=== PATIENT | female | born 1950 | race African-American/Black ===

== ENCOUNTER 2021-05-01 13:01 | Emergency (ER) | payer OTHER, BC ==
[~2021-05-01] VITALS: Ht 167.6 cm; Wt 102.1 kg
--- NOTE | ~2021-05-01 | EMS ---
[address] [address] EMS Patient Care Report Name: DELVIN DANIEL Room #: DEP SCOTT Rodríguez#: [id number] Admission: 05/01/21 Attend Phys: Discharge: 05/01/21 Date of : 50 Report #: [id number] THIS REPORT FOR: //name// Report Transmitted: 05/02/2021 13:30 EMS Care Summary [place], [place]/[facility] Incident [id number] @ 05/01/2021 12:19 Incident Location [facility] [place] H12 Patient DELVIN DANIEL Female, 70 Years 1950 Patient Address [address] [place], [place] [id number] Patient History Other,Asthma,Diabetes,Gastrointestinal Problems,Kidney/Renal Failure,Hyperlipidemia,Fibromyalgia,Morbid Obesity,Neuropathy,Sleep Apnea,Dialysis,Appendectomy, Patient Allergies Other drug allergy, Patient Medications Albuterol, Lantus, Percocet, Midodrine, Other, Gabapentin, Sertraline, Pantoprazole, Aspirin, Chief Complaint Dialysis treatment needed Disposition Transported No Lights/[place] Dispatch Reason Sick Person Transported To [facility] Narrative M42 arrived on scene to find the patient sitting upright in her chair. Staff [address] [address] EMS Patient Care Report Name: DELVIN DANIEL Room #: DEP ER Marcos#: [id number] Admission: 05/01/21 Attend Phys: Discharge: 05/01/21 Date of : 50 Report #: [id number] said they did not get her paperwork done right so the patient was unable to do her dialysis there. Patient was being sent to [facility] for the treatment. Patient denied chest pain, fever, cough, or shortness of breath. Patient was moved to the cot and secured with seat belts. En route to the hospital no changes in the patient condition occurred. M42 arrived on scene of the hospital and patient care was transferred to the RN. Initial Vitals @12:46P: 89,R: 16,BP: 147/78,Pain: 0/10,GCS: 15,CO: 8,SpO2: 90,Revised Trauma: 12, @12:45P: 92,R: 16,BP: 143/91,Pain: 0/10,GCS: 15,SpO2: 95,Revised Trauma: 12, Assessments @12:32MENTAL:No Abnormalities,SKIN:No Abnormalities,HEENT:Head/Face: No Abnormalities,Eyes: No Abnormalities,Neck/Airway: No Abnormalities,LUNG SOUNDS:General: No Abnormalities,Left Upper: No Abnormalities,Right Upper: No Abnormalities,Left Lower: No Abnormalities,Right Lower: No Abnormalities,ABDOMEN:General: No Abnormalities,Left Upper: No Abnormalities,Right Upper: No Abnormalities,Left Lower: No Abnormalities,Right Lower: No Abnormalities,PELVIS//GI:No Abnormalities,EXTREMITIES:Left Arm: No Abnormalities,Right Arm: No Abnormalities,Left Leg: No Abnormalities,Right Leg: No Abnormalities,PULSE:NEURO:No Abnormalities,@12:46MENTAL:No Abnormalities,SKIN:No Abnormalities,HEENT:Head/Face: No Abnormalities,Eyes: No Abnormalities,Neck/Airway: No Abnormalities,LUNG SOUNDS:General: No Abnormalities,Left Upper: No Abnormalities,Right Upper: No Abnormalities,Left Lower: No Abnormalities,Right Lower: No Abnormalities,ABDOMEN:General: No Abnormalities,Left Upper: No Abnormalities,Right Upper: No Abnormalities,Left Lower: No Abnormalities,Right Lower: No Abnormalities,PELVIS//GI:No Abnormalities,EXTREMITIES:Left Arm: No Abnormalities,Right Arm: No Abnormalities,Left Leg: No Abnormalities,Right Leg: No Abnormalities,PULSE:NEURO:No Abnormalities, Impression Generalized Weakness Procedures @12:32 ALS Assessment Response: UnchangedSucceeded Timeline 12:17,Call Received 12:17,Dispatch Notified 12:19,Dispatched 12:20,En Route 12:31,On Scene 12:32,At Patient [address] [address] EMS Patient Care Report Name: DELVIN DANIEL Room #: DEP SCOTT Rodríguez#: [id number] Admission: 05/01/21 Attend Phys: Discharge: 05/01/21 Date of : 50 Report #: [id number] 12:32,ALS Assessment,Response: UnchangedSucceeded, 12:45,BP: 143/91 M,PULSE: 92,RR: 16 R,SPO2: 95 Ox,ETCO2: ,BG: ,PAIN: 0,GCS: 15, 12:46,BP: 147/78 M,PULSE: 89,RR: 16 R,SPO2: 90 Ox,ETCO2: ,BG: ,PAIN: 0,GCS: 15, 12:54,Depart Scene 13:06,At Destination 13:13,Call Closed Disclaimer v1.1 Copyright 2020 [employer] This EMS Care Summary contains data elements from the applicable legal record (which may be displayed differently). It is designed to provide pertinent information for the following purposes: continuity of care, clinical quality, and state data reporting. The complete legal record is available to ED staff and administrators of the receiving hospital in [employer] Patient Tracker. All data is provided "as is."
[2021-05-01 13:45] LABS: ABSOLUTE NEUTROPHILS 7.1 thou/uL (1.4-8.2); BASOPHILS 0.9 % (0.0-2.0); EOSINOPHILS 3.6 % (0.0-3.0); HEMATOCRIT 31.5 % (37.0-47.0); HEMOGLOBIN 10.2 gm/dL (12.0-15.0); MCH 30.5 pg (26.0-34.0); MCHC 32.2 g/dL (28.0-37.0); MCV 94.7 fL (80.0-100.0); MONOCYTES 9.5 % (1.0-8.0); PLATELET COUNT 320 thou/uL (150-400); RBC 3.33 mil/uL (4.20-5.00); RDW 19.6 % (10.5-14.5); WBC 9.1 thou/uL (4.0-11.0)
[2021-05-01 13:58] LABS: CALCIUM 9.6 mg/dL (8.5-10.1); CREATININE 5.7 mg/dL (0.6-1.0); POTASSIUM 4.6 mmol/L (3.5-5.1)
[2021-05-01 14:00] LABS: ALBUMIN 2.4 g/dL (3.4-5.0); TOTAL BILIRUBIN 0.4 mg/dL (0.2-1.0); TOTAL PROTEIN 8.5 g/dL (6.4-8.2)
[2021-05-01 20:02] VITALS: BP 127/71
== END 2021-05-01 20:44 ==
LOC: ER 13:01
PROVIDERS: Physician Assistant
DX: E11.22 Type 2 diabetes mellitus with diabetic chronic kidney disease (principal); Z20.822 Contact with and (suspected) exposure to COVID-19; N18.6 End stage renal disease; K21.9 Gastro-esophageal reflux disease without esophagitis; I50.9 Heart failure, unspecified; E66.01 Morbid (severe) obesity due to excess calories; M10.9 Gout, unspecified; M79.7 Fibromyalgia; Z99.2 Dependence on renal dialysis; Z68.36 Body mass index [BMI] 36.0-36.9, adult; Z88.6 Allergy status to analgesic agent; Z91.041 Radiographic dye allergy status
CPT/HCPCS: 32100